=== PATIENT | female | born 1975 | race Caucasian/White ===

== ENCOUNTER 2017-05-17 18:33 | Emergency (ER) | payer OTHER ==
--- NOTE | 2017-05-17 18:54 | EDPHY ---
H & P Stated Complaint: Lac to L thumb on utility knife Time Seen by Provider: 05/17/17 18:46 HPI/ROS: HPI: This is a 41-year-old female who presents with Chief Complaint: Lac to L thumb on utility knife Location: Left thumb Quality: Laceration Duration: Prior to arrival Signs and Symptoms: + bleeding, no radiation, no numbness, no weakness, no tingling, no incontinence, no decreased range of motion, no swelling, + pain Timing: Acute Severity: [id number] Context: Patient is right-hand dominant, was using [employer] knife, when she accidentally slipped and cut the distal portion of her left thumb going through her the distal end of her nail partially. He reports he immediate moderate pain that was nonradiating in nature accompanied by bleeding. She applied direct pressure and now her right hand is stuck to her left hand due to the blood trying. Patient is very reluctant for me to pull with the dressing or moved from a position. She denies paresthesias/skin color changes/ decreased range of motion. Tetanus up-to-date. Modifying Factors: Direct pressure Comment: ROS: see HPI Constitutional: No fever, no chills, no weight loss Eyes: No blurred vision Respiratory: No shortness of breath, no cough Cardiovascular: No chest pain Gastrointestinal: No nausea, no vomiting no diarrhea Genitourinary: No dysuria Extremities: No myalgias Neurologic: No weakness, no numbness Skin: No rashes Hematologic: No bruising, no bleeding MEDICAL/SURGICAL/SOCIAL HISTORY: Medical history: Vasovagal syndrome Surgical history: Appendectomy Social history: . Employed. CONSTITUTIONAL: Extremely anxious adult white female, awake and alert, no obvious distress HEENT: Atraumatic and normocephalic, PERRL, EOMI. Tympanic membranes clear. Oropharynx clear, no exudate and moist pink mucosa. Airway patent. No lymphadenopathy. No meningismus. Cardiovascular: Normal S1/S2, regular rate, regular rhythm, without murmur rub or gallop. PULMONARY/CHEST: Symmetrical and nontender. Clear to auscultation bilaterally. Good air movement. No accessory muscle usage. ABDOMEN: Soft, nondistended, nontender, no rebound, no guarding, no peritoneal signs, no masses or organomegaly. No CVAT. EXTREMITIES: 2/2 radial pulses, strength 5/5, left thumb distal portion lateral aspect 2.5 cm linear, simple, laceration from the outer lateral edge into the nail extending approximately intermediate. Light touch sensation intact. DIP/PIP/MCP flexion, extension intact. no deformities, no clubbing, no cyanosis or edema. NEUROLOGICAL: no focal neuro deficits. GCS 15. SKIN: Warm and dry, no erythema. no rash. Good capillary refill. Source: Patient, Family () Exam Limitations: No limitations - Personal History LMP (Females 10-55): 8-14 Days Ago Current Tetanus Diphtheria and Acellular Pertussis (TDAP): Yes Tetanus Vaccine Date: WITHIN 10 YRS - Medical/Surgical History Other PMH: APPY. Vaso-vagal syndrom - Social History Smoking Status: Never smoked Constitutional: Initial Vital Signs Temperature (C) 36.7 C 05/17/17 18:36 Heart Rate 71 05/17/17 18:36 Respiratory Rate 16 05/17/17 18:36 Blood Pressure 85/48 L 05/17/17 18:36 O2 Sat (%) 97 05/17/17 18:36 O2 Delivery Mode Room Air Allergies/Adverse Reactions: Penicillins Allergy (Intermediate, Verified 05/17/17 18:35) Hives Home Medications: Medication Instructions Recorded Zoloft 100mg (RX) 01/02/15 Cephalexin [Keflex (*)] 500 mg PO QID #28 cap 05/17/17 oxyCODONE/APAP 5/325 [Percocet 1 - 2 tab PO Q4H PRN #12 tab 05/17/17 5/325 (*)] Medical Decision Making - Diagnostics Imaging Results: Imaging Impressions Finger X-Ray 05/17/17 19:07 Impression: Minimally displaced fracture at the tip of the terminal tuft left thumb at the site of soft tissue injury. Procedures: Procedure: Laceration repair. Verbal consent was obtained from the patient. The 2.5 cm, complex, linear, deep laceration on the left lateral thumb distal portion was anesthetized in the usual fashion using a digital block of 0.5% bupivacaine approximately 4 mL. The wound was irrigated, draped and explored to its base with a gloved finger. There were no deep structures involved. No tendon injury was identified. No foreign bodies were identified. The wound was repaired with #4, 5-0 Prolene. Good hemostasis was achieved and patient tolerated relatively well. The procedure was performed by myself. Procedure: Nail bed reconstruction. Laceration repair: Verbal consent was obtained from the patient. A nail bed laceration was identified on the left thumb. The finger was anesthetized in the usual fashion. The wound was scrubbed, draped and explored to its base with a gloved finger. The nail plate was repaired using #3, 5-0 chromic gut. There is a distal tuft fracture. The procedure was performed by myself. Procedure: Splint placement. A left thumb finger splint was applied. After application of the splint I returned and re-examined the patient. The splint was adequately immobilizing the joint and distal to the splint the patient's circulation and sensation was intact. ED Course/Re-evaluation: Left thumb x-ray ordered to evaluate for foreign body Wound care and laceration repair ordered Tetanus up-to-date No signs of neurovascular compromise/tenting of skin/compartment syndrome/ extremities and joints examined above and below area of concern and are neurovascularly intact. X-ray my read shows a small tuft fracture. Given Keflex as there is a low risk for open fracture. Xeroform, dressing and finger splint applied This patient was seen under the supervision of my secondary supervising physician. I evaluated care for this patient independently. Discussed this patient with Dr. Mccartney who did not see the patient. Patient's presentation, labs/imaging, treatment and plan of care were discussed with secondary supervising physician. Differential Diagnosis: Differential diagnosis includes but is not limited to laceration, nerve injury, tendon injury, nail involvement, contusion, hematoma. - Data Points Medications Given: Discontinued Medications Cephalexin HCl (Keflex) 500 mg PO EDNOW ONE PRN Reason: Protocol Stop: 05/17/17 20:06 Last Admin: 05/17/17 20:08 Dose: 500 mg Departure - Departure Disposition: Home, Routine, Self-Care Clinical Impression: Closed fracture of tuft of distal phalanx of left thumb Laceration of left thumb with damage to nail Qualifiers: Encounter type: initial encounter Foreign body presence: without foreign body Qualified Code(s): S61.112A - Laceration without foreign body of left thumb with damage to nail, initial encounter Condition: Good Instructions: Finger Fracture (ED), Finger Laceration (ED), Nail Avulsion (ED) Additional Instructions: Keep the dressing/splint dry and in place x 7 days which seen for follow-up with Orthopedics. After 7 days you may remove the splint; wash the area with mild soap and water and pat dry. Please keep cover with clean sterile dressing and use splint until fully healed. Take Tylenol 650 mg every 4 hours and/or Ibuprofen 600 mg every 8 hours with food as needed for pain. Apply ice for 30 minutes at a time; 2-3 times per day for the next 1-2 days. Sutures will need to be removed in 10 days. Please return to the emergency room to have these removed. This sutures in nail are absorbable and will slowly dissolve on their own. Your nail will take weeks to months to grow out. Take all the antibiotics as indicated until complete. Please follow up with Hand surgery in 7-10 days for re-evaluation and to determine if conservative versus further given therapy is indicated. T Referrals: Radha Ochoa MD [Primary Care Provider] - As per Instructions Tera Ramírez MD [Medical Doctor] - As per Instructions Prescriptions: Cephalexin [Keflex (*)] 500 mg PO QID #28 cap oxyCODONE/APAP 5/325 [Percocet 5/325 (*)] 1 - 2 tab PO Q4H PRN #12 tab PRN Reason: Pain, Severe
[2017-05-17] MEDS ORDERED: CEPHALEXIN 500 MG CAP PO ONE (20:05)
[2017-05-17 20:40] VITALS: BP 122/70; PULSE 70; RESP 14; TEMP 97.5; O2SAT 99
== END 2017-05-17 20:40 | disposition home or self-care (01) ==
PROC: 0HQQXZZ Repair Finger Nail, External Approach (ICD-10-PCS; principal; 2017-05-17)
DX: S62.522B Displaced fracture of distal phalanx of left thumb, initial encounter for open fracture (principal); W26.0XXA Contact with knife, initial encounter